=== PATIENT | female | born 1965 | race Caucasian/White ===

== ENCOUNTER 2016-10-15 10:55 | Emergency (ER) | payer MEDICAID ==
[~2016-10-15] VITALS: Ht 160 cm; Wt 94.3 kg
[~2016-10-15 10:55] MED LIST: ALLOPURINOL100 MG PO; APAP/HYDROCODON1 T13 PO; ASPIR 8181 MG PO; AUG500 PO; CLINDAMYCIN HC300 MG PO; COL100 PO; COLACE100 MG PO; CORDROL20 MG PO; ENALAPRIL MALE2.5 MG PO; ENALAPRIL PO; FERROUS SULFAT325 M2 PO; GLU500 PO; LAC PO; LEXAPRO10 MG PO; MET2.5 PO; METFORMIN HCL500 MG PO; METFORMIN500 M1 PO; METFORMIN500 MG PO; METHOTREXATE2.5 M1 PO; METOPROLOL50 MG PO; NITRO TRANS0.4 MG/HR TD; NORCO1 TA2 PO; PENTOXIFYL XR400 M1 PO; PENTOXIFYL XR400 MG PO; PENTOXIFYLLINE400 MG PO; PERCOCET1 TA4 PO; PRE10 PO; PREDNISOLONE OP; PREDNISONE20 MG PO; SIMVASTATIN20 M1 PO; SIMVASTATIN40 M1 PO; SIMVASTATIN40 MG PO; TRE400 PO; ZESTRIL20 MG PO; ZYL100 PO
[2016-10-15 13:02] VITALS: BP 125/72
== END 2016-10-15 13:02 | disposition home or self-care (01) ==
LOC: ED 10:55
DX: G89.29 Other chronic pain (principal); M25.572 Pain in left ankle and joints of left foot; E11.9 Type 2 diabetes mellitus without complications; I10 Essential (primary) hypertension; M06.9 Rheumatoid arthritis, unspecified; Z79.84 Long term (current) use of oral hypoglycemic drugs; Z79.899 Other long term (current) drug therapy; W18.39XA Other fall on same level, initial encounter; Y93.89 Activity, other specified; Y99.8 Other external cause status; Y92.89 Other specified places as the place of occurrence of the external cause
CPT/HCPCS: Q0092

== ENCOUNTER 2017-01-02 09:14 | Emergency (ER) | payer MEDICAID ==
[~2017-01-02] VITALS: Ht 160 cm; Wt 92.8 kg
[2017-01-02 10:33] LABS: microscopic required? NO
[2017-01-02 10:47] LABS: BASOPHIL % 0.3 % (0-2); PLATELET COUNT 360 x10^3mcL (130-400); RED CELL DISTRIBUTION WIDTH 17.3 % (11.5-14.5)
[2017-01-02 10:48] LABS: CALCIUM 8.8 mg/dL (8.5-10.1); CARBON DIOXIDE 28.9 mmol/L (21-32); CHLORIDE SERUM 101 mmol/L (98-107); CREATININE SERUM 0.7 mg/dL (0.6-1.0); GFR1 > 60 mL/min; GLUCOSE SERUM 96 mg/dL (74-106); POTASSIUM SERUM 3.3 mmol/L (3.5-5.1); SODIUM SERUM 140 mmol/L (136-145)
[2017-01-02 10:53] LABS: ALBUMIN 3.5 g/dL (3.4-5.0); ALKALINE PHOSPHATASE 106 U/L (46-116); ALT/SGPT 29 U/L (14-59); AST/SGOT 52 U/L (15-37); BILIRUBIN TOTAL 0.5 mg/dL (0.20-1.00); TOTAL PROTEIN, SERUM 7.6 g/dL (6.4-8.2)
[2017-01-02 10:54] LABS: urine erythrocyte NEGATIVE (NEGATIVE)
[2017-01-02 12:22] VITALS: BP 105/64
== END 2017-01-02 12:22 | disposition home or self-care (01) ==
LOC: ED 09:14
PROVIDERS: Emergency Medicine
DX: R11.2 Nausea with vomiting, unspecified (principal); R19.7 Diarrhea, unspecified; M06.9 Rheumatoid arthritis, unspecified; E11.9 Type 2 diabetes mellitus without complications; I10 Essential (primary) hypertension; Z91.013 Allergy to seafood; E78.00 Pure hypercholesterolemia, unspecified; Z90.89 Acquired absence of other organs; Z90.49 Acquired absence of other specified parts of digestive tract
CPT/HCPCS: J1885; J2405; J7030

== ENCOUNTER 2017-07-28 18:19 | Emergency (ER) | payer MEDICAID ==
[~2017-07-28] VITALS: Ht 160 cm; Wt 84.8 kg
[2017-07-28 18:22] VITALS: Ht 160 cm; Wt 84.8 kg
[2017-07-28 21:06] VITALS: BP 114/74
== END 2017-07-28 21:06 | disposition home or self-care (01) ==
LOC: ED 18:19
DX: R10.32 Left lower quadrant pain (principal); G89.29 Other chronic pain; M54.5 Low back pain; M19.90 Unspecified osteoarthritis, unspecified site; I10 Essential (primary) hypertension; E11.9 Type 2 diabetes mellitus without complications; Z91.013 Allergy to seafood; Z91.018 Allergy to other foods; Z90.722 Acquired absence of ovaries, bilateral; Z90.49 Acquired absence of other specified parts of digestive tract

== ENCOUNTER 2017-09-14 19:58 | Emergency (ER) | payer MEDICAID ==
[~2017-09-14] VITALS: Ht 160 cm; Wt 86.6 kg
[2017-09-14 20:03] VITALS: Ht 160 cm; Wt 86.6 kg
[2017-09-14 23:34] VITALS: BP 128/78
== END 2017-09-14 23:34 | disposition home or self-care (01) ==
LOC: ED 19:58
DX: T80.89XA Other complications following infusion, transfusion and therapeutic injection, initial encounter (principal); I10 Essential (primary) hypertension; E11.9 Type 2 diabetes mellitus without complications; Z91.013 Allergy to seafood; E78.00 Pure hypercholesterolemia, unspecified; Z90.722 Acquired absence of ovaries, bilateral; Z90.49 Acquired absence of other specified parts of digestive tract; Z90.89 Acquired absence of other organs

== ENCOUNTER 2017-09-26 09:31 | Emergency (ER) | payer MEDICAID ==
[~2017-09-26] VITALS: Ht 160 cm; Wt 85.7 kg
[2017-09-26 09:39] VITALS: Ht 160 cm; Wt 85.7 kg
[2017-09-26 10:46] LABS: BASOPHIL % 0.4 % (0-2); PLATELET COUNT 317 x10^3mcL (130-400)
[2017-09-26 10:55] LABS: CALCIUM 8.3 mg/dL (8.5-10.1); CARBON DIOXIDE 26.2 mmol/L (21-32); CHLORIDE SERUM 106 mmol/L (98-107); CREATININE SERUM 0.5 mg/dL (0.6-1.0); GFR1 > 60 mL/min; GLUCOSE SERUM 93 mg/dL (74-106); SODIUM SERUM 140 mmol/L (136-145)
[2017-09-26 11:04] LABS: RED CELL DISTRIBUTION WIDTH 16.6 % (11.5-14.5)
[2017-09-26 14:48] VITALS: BP 98/77
== END 2017-09-26 14:48 | disposition home or self-care (01) ==
LOC: ED 09:31
PROVIDERS: Emergency Medicine
DX: N39.0 Urinary tract infection, site not specified (principal); I10 Essential (primary) hypertension; E11.9 Type 2 diabetes mellitus without complications; E78.00 Pure hypercholesterolemia, unspecified; Z90.49 Acquired absence of other specified parts of digestive tract; Z90.722 Acquired absence of ovaries, bilateral
CPT/HCPCS: 36415; J1885; Q0092

== ENCOUNTER 2017-12-30 08:54 | Emergency (ER) | payer MEDICAID ==
[2017-12-30 09:05] VITALS: Ht 160 cm
[2017-12-30 10:03] LABS: BASOPHIL % 0.5 % (0-2); PLATELET COUNT 336 x10^3mcL (130-400)
[2017-12-30 10:04] LABS: RED CELL DISTRIBUTION WIDTH 16.6 % (11.5-14.5)
[2017-12-30 10:13] LABS: CALCIUM 8.7 mg/dL (8.5-10.1); CARBON DIOXIDE 25.8 mmol/L (21-32); CHLORIDE SERUM 105 mmol/L (98-107); CREATININE SERUM 0.6 mg/dL (0.6-1.0); GFR1 > 60 mL/min; GLUCOSE SERUM 94 mg/dL (74-106); POTASSIUM SERUM 4.5 mmol/L (3.5-5.1); SODIUM SERUM 136 mmol/L (136-145)
[2017-12-30 10:48] VITALS: BP 126/77
== END 2017-12-30 10:48 | disposition home or self-care (01) ==
LOC: ED 08:54
PROVIDERS: Emergency Medicine
DX: N93.8 Other specified abnormal uterine and vaginal bleeding (principal); I10 Essential (primary) hypertension; E11.9 Type 2 diabetes mellitus without complications; E78.00 Pure hypercholesterolemia, unspecified; M19.90 Unspecified osteoarthritis, unspecified site; Z90.722 Acquired absence of ovaries, bilateral; Z90.49 Acquired absence of other specified parts of digestive tract; Z90.89 Acquired absence of other organs; Z98.890 Other specified postprocedural states; Z91.013 Allergy to seafood; Z91.018 Allergy to other foods
CPT/HCPCS: 36415; J1885

== ENCOUNTER 2018-07-17 10:01 | Emergency (ER) | payer OTHER ==
[~2018-07-17] VITALS: Ht 160 cm; Wt 103.0 kg
[2018-07-17 10:30] VITALS: Ht 160 cm; Wt 103.0 kg
[2018-07-17 11:39] LABS: BASOPHIL % 0.4 % (0-2); PLATELET COUNT 294 x10^3mcL (130-400); RED CELL DISTRIBUTION WIDTH 16.8 % (11.5-14.5)
[2018-07-17 11:56] LABS: CALCIUM 8.8 mg/dL (8.5-10.1); CHLORIDE SERUM 104 mmol/L (98-107); CREATININE SERUM 0.6 mg/dL (0.6-1.0); GFR1 > 60 mL/min; GLUCOSE SERUM 104 mg/dL (74-106); POTASSIUM SERUM 3.7 mmol/L (3.5-5.1); SODIUM SERUM 138 mmol/L (136-145)
[2018-07-17 12:01] LABS: ALBUMIN 3.4 g/dL (3.4-5.0); ALKALINE PHOSPHATASE 126 U/L (46-116); ALT/SGPT 47 U/L (14-59); AST/SGOT 34 U/L (15-37); BILIRUBIN TOTAL 0.3 mg/dL (0.20-1.00); TOTAL PROTEIN, SERUM 7.7 g/dL (6.4-8.2)
[2018-07-17 12:43] VITALS: BP 155/95
== END 2018-07-17 12:43 | disposition home or self-care (01) ==
LOC: ED 10:01
PROVIDERS: Emergency Medicine
DX: F41.9 Anxiety disorder, unspecified (principal); I10 Essential (primary) hypertension; E11.9 Type 2 diabetes mellitus without complications; E78.00 Pure hypercholesterolemia, unspecified; Z90.49 Acquired absence of other specified parts of digestive tract; Z90.89 Acquired absence of other organs; M19.90 Unspecified osteoarthritis, unspecified site; Z91.013 Allergy to seafood
CPT/HCPCS: 36415; 82962

== ENCOUNTER 2018-08-26 09:04 | Emergency (ER) | payer OTHER ==
[~2018-08-26] VITALS: Ht 160 cm; Wt 101.6 kg
[2018-08-26 09:07] VITALS: Ht 160 cm; Wt 101.6 kg
[2018-08-26 09:56] LABS: BASOPHIL % 0.4 % (0-2); PLATELET COUNT 402 x10^3mcL (130-400); RED CELL DISTRIBUTION WIDTH 15.6 % (11.5-14.5)
[2018-08-26 10:02] LABS: CALCIUM 8.7 mg/dL (8.5-10.1); CARBON DIOXIDE 23.8 mmol/L (21-32); CHLORIDE SERUM 106 mmol/L (98-107); CREATININE SERUM 0.7 mg/dL (0.6-1.0); GFR1 > 60 mL/min; GLUCOSE SERUM 136 mg/dL (74-106); POTASSIUM SERUM 3.9 mmol/L (3.5-5.1); SODIUM SERUM 141 mmol/L (136-145)
[2018-08-26 10:13] LABS: ALKALINE PHOSPHATASE 112 U/L (46-116); ALT/SGPT 29 U/L (14-59); AST/SGOT 17 U/L (15-37); BILIRUBIN TOTAL 0.2 mg/dL (0.20-1.00); CHOLESTEROL 147 mg/dL (<200); HDL CHOLESTEROL 39 mg/dL (40-60); LIPASE 234 IU/L (73-393); MAGNESIUM 1.9 mg/dL (1.8-2.4); T4(THYROXINE) 7.2 ug/dL (4.7-13.3); TOTAL PROTEIN, SERUM 7.4 g/dL (6.4-8.2)
[2018-08-26 10:14] LABS: ALBUMIN 3.3 g/dL (3.4-5.0)
[2018-08-26 10:51] LABS: UA SPECIFIC GRAVITY 1.025 (1.005-1.035); microscopic required? YES; urine erythrocyte TRACE (NEGATIVE)
[2018-08-26 10:52] LABS: AMPHETAMINE QUAL UR NONE DETECTED (See below)
[2018-08-26 12:35] VITALS: BP 106/72
== END 2018-08-26 12:35 | disposition home or self-care (01) ==
LOC: ED 09:04
PROVIDERS: Emergency Medicine
DX: R42 Dizziness and giddiness (principal); I10 Essential (primary) hypertension; E11.9 Type 2 diabetes mellitus without complications; E78.00 Pure hypercholesterolemia, unspecified; M06.9 Rheumatoid arthritis, unspecified; Z98.890 Other specified postprocedural states; Z90.49 Acquired absence of other specified parts of digestive tract; Z90.89 Acquired absence of other organs; Z91.013 Allergy to seafood; Z90.721 Acquired absence of ovaries, unilateral
CPT/HCPCS: 82962; 83880; J2550; J7030; J8597; Q0092

== ENCOUNTER 2018-09-29 14:33 | Emergency (ER) | payer OTHER ==
[~2018-09-29] VITALS: Ht 160 cm; Wt 102.1 kg
[2018-09-29 14:35] VITALS: Ht 160 cm; Wt 102.1 kg
[2018-09-29 15:43] VITALS: BP 143/71
== END 2018-09-29 15:43 | disposition home or self-care (01) ==
LOC: ED 14:33
DX: M25.562 Pain in left knee (principal); I10 Essential (primary) hypertension; E11.9 Type 2 diabetes mellitus without complications; E78.00 Pure hypercholesterolemia, unspecified; Z90.49 Acquired absence of other specified parts of digestive tract; Z98.890 Other specified postprocedural states; Z90.89 Acquired absence of other organs; Z91.013 Allergy to seafood; Z88.8 Allergy status to other drugs, medicaments and biological substances; X50.3XXA Overexertion from repetitive movements, initial encounter; Y93.89 Activity, other specified; Y92.89 Other specified places as the place of occurrence of the external cause; Y99.8 Other external cause status
CPT/HCPCS: J1885; J7512; Q0092

== ENCOUNTER 2018-12-05 11:25 | Emergency (ER) | payer OTHER ==
[~2018-12-05] VITALS: Ht 160 cm; Wt 102.5 kg
[2018-12-05 11:37] VITALS: Ht 160 cm; Wt 102.5 kg
[2018-12-05 12:10] LABS: BASOPHIL % 0.3 % (0-2); PLATELET COUNT 335 x10^3mcL (130-400)
[2018-12-05 12:12] LABS: RED CELL DISTRIBUTION WIDTH 16.1 % (11.5-14.5)
[2018-12-05 15:34] VITALS: BP 117/66
== END 2018-12-05 15:34 | disposition home or self-care (01) ==
LOC: ED 11:25
DX: N93.9 Abnormal uterine and vaginal bleeding, unspecified (principal); R10.30 Lower abdominal pain, unspecified; I10 Essential (primary) hypertension; E11.9 Type 2 diabetes mellitus without complications; E78.00 Pure hypercholesterolemia, unspecified; Z90.89 Acquired absence of other organs; Z90.49 Acquired absence of other specified parts of digestive tract; M19.90 Unspecified osteoarthritis, unspecified site; Z91.018 Allergy to other foods; Z91.013 Allergy to seafood
CPT/HCPCS: 36415; Q0092

== ENCOUNTER 2019-09-03 21:02 | Emergency (ER) | payer OTHER, SELFPAY ==
[~2019-09-03] VITALS: Ht 157.5 cm; Wt 104.3 kg
[2019-09-03 21:16] VITALS: Ht 157.5 cm; Wt 104.3 kg
[2019-09-03 23:37] VITALS: BP 120/57
== END 2019-09-03 23:37 | disposition home or self-care (01) ==
LOC: ED 21:02
DX: U07.1 COVID-19 (principal); J20.8 Acute bronchitis due to other specified organisms; I10 Essential (primary) hypertension; E11.9 Type 2 diabetes mellitus without complications; E78.00 Pure hypercholesterolemia, unspecified; M19.90 Unspecified osteoarthritis, unspecified site; Z90.49 Acquired absence of other specified parts of digestive tract; Z90.89 Acquired absence of other organs; Z91.013 Allergy to seafood; Z91.018 Allergy to other foods
CPT/HCPCS: J1885; Q0092; U0003-CS